=== PATIENT | male | born 1985 | race Caucasian/White ===

== ENCOUNTER → 2025-04-17 | Outpatient (CLI) | payer SELFPAY ==
--- NOTE | 2025-04-17 16:44 | US_ITS ---
PROCEDURE: TESTICULAR WITH ARTERIAL FLOW 04/17/2025 REASON FOR EXAM: L SCROTAL MASS TECHNIQUE: Freire scale imaging of the scrotal contents. COMPARISON: None. FINDINGS: RIGHT testicle: Unremarkable measuring 4.7 x 3.5 x 2.3 cm. Normal right testicular flow. Right epididymis: Unremarkable measuring 0.9 x 1 x 0.8 cm. Mild right hydrocele. No evidence of right varicocele. LEFT testicle: Unremarkable measuring 4.5 x 3.2 x 2.6 cm. Normal left testicular flow. Left epididymis: 1.5 x 0.9 x 1 cm. Multiple left epididymal cysts are noted with the largest measuring 1.6 cm corresponding to the palpable clinical abnormality. Multiple epididymal cysts are noted in the epididymal head with the largest measuring 0.7 cm. Moderate left hydrocele. No evidence of left hydrocele. US/Testicular with Arterial Flow IMPRESSION: Normal testicles. The palpable clinical abnormality adjacent to the left testicle corresponds to prominent, benign chronic simple epididymal cysts. Reading Location: [place] [id number]
== END | disposition home or self-care (01) ==
PROVIDERS: PCP Physician Assistant; Referring Provider Physician Assistant; Visit Provider Physician Assistant
DX: N50.89 Other specified disorders of the male genital organs (principal)
CPT/HCPCS: 76870; 93976